=== PATIENT | female | born 1995 | race Caucasian/White ===

== ENCOUNTER 2022-04-27 21:04 | Emergency (ER) | payer MEDICAID | END 2022-04-27 21:35 | disposition left against medical advice (07) | LOC: MW.ED 21:04 | DX: Z53.20 Procedure and treatment not carried out because of patient's decision for unspecified reasons (principal) ==

== ENCOUNTER 2022-09-07 16:50 | Inpatient (IN) | payer MEDICAID ==
[2022-09-07] MEDS ORDERED: Carboprost Tromethamine 250 MCG/1 ML Amp IM PRN (16:58)
[2022-09-07] MEDS ORDERED: Terbutaline 1 MG/ML SDV SUBCUT PRN (16:58)
[2022-09-07] MEDS ORDERED: Misoprostol 25 MCG (1/4 of 100 MCG) Tab VAG PRN ×2 (16:58)
[2022-09-07] MEDS ORDERED: Sodium Chloride 0.9% 10 ML Syringe FLUSH PRN (16:58)
[2022-09-07] MEDS ORDERED: Sodium Chloride 0.9% 20 ML SDV IV PRN (16:58)
[2022-09-07] MEDS ORDERED: Water For Irrigation,Sterile 1,000 ML Container IRR PRN (16:58)
[2022-09-07] MEDS ORDERED: Ondansetron 4 MG/2 ML SDV IVPUSH PRN (16:58)
[2022-09-07] MEDS ORDERED: Tranexamic Acid 1,000 MG in Sodium Chloride 0.9% 100 ML IV PRN (16:58)
[2022-09-07] MEDS ORDERED: Methylergonovine 0.2 MG/1 ML Amp IM PRN (16:58)
[2022-09-07] MEDS ORDERED: Misoprostol 200 MCG Tab PO PRN (16:58)
[2022-09-07] MEDS ORDERED: Lidocaine 1% 50 ML MDV INJECT PRN (16:58)
[2022-09-07] MEDS ORDERED: Sodium Chloride 0.9% 2.5 ML Syringe FLUSH PRN (16:58)
[2022-09-07] MEDS ORDERED: Oxytocin/0.9 % Sodium Chloride 30 UNIT/500 ML BAG IV SCH ×2 (17:00)
[2022-09-07] MEDS: Lactated Ringers 1,000 ML IV SCH (17:58)
[2022-09-07] MEDS ORDERED: diphenhydrAMINE 50 MG Cap PO PRN (19:57)
[2022-09-07] MEDS: Butorphanol 1 MG/ML SDV IVPUSH PRN ×2 (21:33→23:11)
[2022-09-08] MEDS ORDERED: Butorphanol 1 MG/ML SDV IVPUSH PRN (00:03)
[2022-09-08] MEDS ORDERED: Nalbuphine HCl 10 MG/ 1ML Amp IM ONE (00:12)
[2022-09-08] MEDS ORDERED: Nalbuphine HCl 10 MG/ 1ML Amp IVPUSH ONE ×2 (00:30→02:51)
[2022-09-08] MEDS: Lactated Ringers 1,000 ML IV SCH ×4 (08:24→23:00)
[2022-09-08] MEDS ORDERED: Bupivacaine 0.25% 10 ML SDV ONE (08:24)
[2022-09-08] MEDS ORDERED: Ropivacaine/PF 400 MG/200 ML PCA ONE (08:25)
[2022-09-08] MEDS ORDERED: ePHEDrine 50 MG/ML SDV IVPUSH PRN ×2 (09:02)
[2022-09-08] MEDS ORDERED: Phenylephrine HCl In 0.9% NaCl 1 MG/10 ML Vial IVPUSH SCH (09:15)
[2022-09-08] MEDS ORDERED: Ropivacaine HCl/PF 400 MG in Premix Bag 1 BAG EPIDUR SCH (09:15)
[2022-09-08] MEDS ORDERED: Hydrocortisone 1% Crm 30 GM Tube TOP PRN (13:26)
[2022-09-08] MEDS ORDERED: Triamcinolone Acetonide 0.1% Crm 15 GM Tube TOP PRN (16:39)
[2022-09-08] MEDS ORDERED: Ibuprofen 400 MG Tab PO PRN (18:51)
[2022-09-08] MEDS ORDERED: Acetaminophen 500 MG Tab PO PRN ×2 (18:51)
[2022-09-08] MEDS ORDERED: Bisacodyl 10 MG Supp RECTAL PRN (18:51)
[2022-09-08] MEDS ORDERED: Ibuprofen 800 MG Tab PO PRN (18:51)
[2022-09-08] MEDS ORDERED: oxyCODONE 5 MG Tab PO PRN (18:51)
[2022-09-08] MEDS ORDERED: Nicotine Polacrilex 4 MG Gum CHEW PRN (18:51)
[2022-09-08] MEDS ORDERED: Benzocaine/Menthol 20%-0.5% Spray 78 GM Cannister TOP PRN (18:51)
[2022-09-08] MEDS ORDERED: Lanolin 100% Cream 7 GM Tube TOP PRN (18:51)
[2022-09-08] MEDS ORDERED: Witch Hazel Medicated Pads 40/Jar TOP PRN (18:51)
[2022-09-08] MEDS ORDERED: Docusate Sodium 100 MG Cap PO PRN (18:51)
[2022-09-08] MEDS ORDERED: Tranexamic Acid 1,000 MG/10 ML Vial ONE (22:45)
[2022-09-09 00:57] LABS: CARBON DIOXIDE,CO2 22.8 mmol/L (21.0-32.0); POTASSIUM,K 3.6 mmol/L (3.5-5.1)
== END 2022-09-09 15:10 | disposition home or self-care (01) | DRG 807 ==
LOC: MW.OBCHECK 16:50 → MW.OB 16:50 → MW.OBCHECK 16:58 → MW.OB 16:59 → OBSVTOIN 09-08 18:28 → MW.OB 09-08 21:00
PROVIDERS: ADMIT Obstetrics & Gynecology; ATTEND Obstetrics & Gynecology
PROC: 10E0XZZ Delivery of Products of Conception, External Approach (ICD-10-PCS; principal; 2022-09-08)
PROC: 0KQM0ZZ Repair Perineum Muscle, Open Approach (ICD-10-PCS; 2022-09-08)
PROC: 10907ZC Drainage of Amniotic Fluid, Therapeutic from Products of Conception, Via Natural or Artificial Opening (ICD-10-PCS; 2022-09-08)
PROC: 3E033VJ Introduction of Other Hormone into Peripheral Vein, Percutaneous Approach (ICD-10-PCS; 2022-09-08)
PROC: 3E0R3BZ Introduction of Anesthetic Agent into Spinal Canal, Percutaneous Approach (ICD-10-PCS; 2022-09-08)
PROC: 00HU33Z Insertion of Infusion Device into Spinal Canal, Percutaneous Approach (ICD-10-PCS; 2022-09-08)
DX: O99.334 Smoking (tobacco) complicating childbirth (principal); Z37.0 Single live birth; F17.210 Nicotine dependence, cigarettes, uncomplicated; F17.290 Nicotine dependence, other tobacco product, uncomplicated; O70.1 Second degree perineal laceration during delivery; Z3A.39 39 weeks gestation of pregnancy; Z20.822 Contact with and (suspected) exposure to COVID-19; O72.1 Other immediate postpartum hemorrhage
CPT/HCPCS: 01967; 36415; 51702; 59025; 59409; 80053; 80305-QW; 82803; 85014; 85018; 85025; 85027; 85384; 85610; 85730; 86592; 86850; 86900; 86901; 86920; A9270-GY; J0595; J2210; J2300; J2405; J2590; J2795; J3490; J7120; U0002

== ENCOUNTER 2023-01-06 10:38 | Emergency (ER) | payer MEDICAID ==
[2023-01-06] MEDS ORDERED: Ondansetron 4 MG Tab.DIS PO ONE (10:57)
[2023-01-06 11:38] LABS: CORONAVIRUS COVID-19 NAA NEGATIVE (NEGATIVE); INFLUENZA A NAA NEGATIVE (NEGATIVE); INFLUENZA B NAA NEGATIVE (NEGATIVE); RESPIRATORY SYNCYTIAL VIR NAA NEGATIVE (NEGATIVE)
== END 2023-01-06 12:04 | disposition home or self-care (01) ==
LOC: MW.ED 10:38
DX: A08.4 Viral intestinal infection, unspecified (principal); Z20.822 Contact with and (suspected) exposure to COVID-19
CPT/HCPCS: 0241U; 99284; A9270